=== PATIENT | male | born 1990 | race Caucasian/White ===

== ENCOUNTER 2024-11-07 01:27 | Emergency (ER) | payer MEDICAID, SELFPAY ==
[2024-11-07 01:28] VITALS: BMI 29.0
[2024-11-07 01:54] VITALS: BP 154/93; PULSE 100; RESP 18; TEMP 36.7; O2SAT 95
--- NOTE | 2024-11-07 02:05 | EDNOTE_ITS ---
<Statement entered by Yuni Lowry MD - 11/17/24 11:50> As co-signing physician, I was present and available for consult prn. I concur with the plan and care as documented by the midlevel provider. ED SOB =RME/HPI General Chief Complaint: Shortness of Breath/Dyspnea Stated Complaint: DIFF BREATHING Time Seen by Provider: 11/07/24 01:57 Source: patient Arrival date/time: 11/07/24 01:27 34-year-old male presents emergency department requesting prescription for inhaler. Patient Nuys any fever, cough, shortness of breath, or any other associated symptom. Patient reports just wants inhaler and wants to go home. Mode of arrival: ambulatory Limitations: no limitations Related Data Previous Rx's ?Medication ?Instructions ?Recorded albuterol sulfate 90 mcg/actuation 2 puff inhalation QID PRN 01/17/19 aerosol inhaler (ProAir HFA) shortness of breath or wheezing #8.5 grams tramadol 37.5 mg-acetaminophen 325 1 tab PO TID PRN pain #15 tabs 11/16/22 mg tablet (Ultracet) albuterol sulfate 90 mcg/actuation 2 puff inhalation Q6H PRN 11/07/24 aerosol inhaler (Ventolin HFA) shortness of breath or wheezing #6.7 grams Allergies Allergy/AdvReac Type Severity Reaction Status Date / Time No Known Allergies Allergy Verified 11/07/24 01:29 Review of Systems Review of Systems Systems Reviewed: All systems reviewed, normal except as documented Constitutional Constitutional: Reports system reviewed and no additional complaints, except as documented, Denies body ache(s), Denies chills and Denies fever(s) Eyes Eyes: Reports system reviewed and no additional complaints, except as documented and Denies change in vision ENT Ears, Nose, Mouth, and Throat: Reports system reviewed and no additional complaints, except as documented, Denies disequilibrium, Denies dizziness, Denies sore throat and Denies vertigo Cardiovascular Cardiovascular: Reports system reviewed and no additional complaints, except as documented, Denies chest pain and Denies dyspnea Respiratory Respiratory: Reports system reviewed and no additional complaints, except as documented, Denies chest congestion, Denies cough and Denies dyspnea Gastrointestinal Gastrointestinal: Reports system reviewed and no additional complaints, except as documented, Denies abdominal pain, Denies nausea and Denies vomiting Musculoskeletal Musculoskeletal: Reports system reviewed and no additional complaints, except as documented, Denies abnormal gait and Denies arthralgias Integumentary/Breasts Skin/Breast: Reports system reviewed and no additional complaints, except as documented, Denies erythema, Denies rash and Denies wounds Neurologic Neurologic: Reports system reviewed and no additional complaints, except as documented, Denies abnormal gait, Denies disequilibrium, Denies dizziness and Denies vertigo Past Medical History Past Medical History CARDIAC: Negative Congestive Heart Failure (UNKNOWN) RESPIRATORY: Negative Chronic Obstructive Pulmonary Disease (COPD) (UNKNOWN) GENITOURINARY: Negative Renal Disease (UNKNOWN) ENDOCRINE: Negative Diabetes Mellitus Type 1 (UNKNOWN) or Diabetes Mellitus Type 2 (UNKNOWN) Social History SMOKING STATUS: Current every day smoker SUBSTANCE USE: does not use ED Exam General Limitations: Present no limitations General appearance: Present alert and in no apparent distress Head Head exam: Present atraumatic Eye Eye exam: Present normal appearance, PERRL and EOMI ENT ENT exam: Present normal exam, normal oropharynx and mucous membranes moist Neck Neck exam: Present normal inspection, full ROM and trachea midline Chest Chest inspection: Present normal inspection and symmetric chest wall rise Respiratory Respiratory exam: Present normal lung sounds bilaterally Cardiovascular Cardiovascular exam: Present regular rate, normal rhythm and normal heart sounds Abdominal Exam Abdominal exam: Present soft and normal bowel sounds Extremities Exam Extremities exam: Present normal inspection and full ROM Back Exam Back exam: Present normal inspection and full ROM Neurological Exam Neurological exam: Present alert, oriented X3 and CN II-XII intact Psychiatric Psychiatric exam: Present normal affect and normal mood Skin Skin exam: Present warm, dry, intact and normal color Course Quality Measures none Orders Category Date Time Status Albuterol/Ipratr Rt Kathryn [Duoneb Rt Kathyrn] Med 11/07/24 02:09 Discontinued 3 ml INH X1 ONE Vital Signs Vital signs: Vital Signs Temperature 98.1 F 11/07/24 01:54 Pulse Rate 100 11/07/24 01:54 Respiratory Rate 18 11/07/24 01:54 Blood Pressure 154/93 H 11/07/24 01:54 Pulse Oximetry (%) 95 11/07/24 01:54 Oxygen Delivery Method Room Air 11/07/24 01:54 95% room air within normal limits Shortness of Breath / Dyspnea MDM Narrative MDM Narrative:: 34-year-old male presents emergency department requesting prescription for inhaler. Patient Nuys any fever, cough, shortness of breath, or any other associated symptom. Patient reports just wants inhaler and wants to go home. Patient refused breathing treatment that was offered. Patient refused offer checks x-ray or further evaluation patient reports just wants inhaler prescription and wants to go home. Instructed patient to follow-up with primary care provider return immediately to emergency department for any worsening symptoms or as needed. Patient data External records reviewed:: [facility] previous records Clinical information provided by:: patient Social determinants that could affect healthcare access:: none Patient has the following chronic illnesses:: Asthma How is presenting disease/condition affected by chronic disease/condition?: exacerbated by Evaluation data The following diagnostics were reviewed and interpreted by me:: other (specify) (Refused) Lab and/or radiology exams considered but not ordered:: Not applicable Interpretation Summary: Not applicable Medications / Prescriptions Medications or Prescriptions considered but not ordered:: Ordered Medication administrations:: Medication Administration History Discontinued Medications Albuterol/Ipratropium (Albuterol/Ipratropium (Duoneb) Rt Kathryn 3 Ml Nebu) 3 ml INH X1 ONE Stop: 11/07/24 02:10 Last Admin: 11/07/24 02:30 Dose: Not Given Documented By: [facility] Non-Admin Reason: Patient Refused Refused Consultations Consultation(s) initiated? (list below): No Diagnosis Shortness of Breath Differential Diagnosis: community acquired pneumonia, asthma with exacerbation and pulmonary embolism Most likely diagnosis given after review of the tests above:: Asthma Admission Indicated Admission indicated?: not indicated Admission Request Was there a request for admission?: No Disposition Plan Disposition Plan: Discharge Discharge Attestation Discharge Attestation: The patient and all family members were given an opportunity to ask questions and understood the discharge instructions. Discharge instructions specifically effects, indications for sooner follow up or return to the emergency department, and the expected course of current diagnosis. Patient condition: Stable Discharge Plan Plan Patient Disposition: HOME (Self Care) Disposition Comment: Stable Prescriptions/Referrals Prescriptions/Med Rec: New albuterol sulfate [Ventolin HFA] 90 mcg/actuation HFA aerosol inhaler 2 puff inhalation Q6H PRN (Reason: shortness of breath or wheezing) Qty: 6.7 0RF No Action albuterol sulfate [ProAir HFA] 90 mcg/actuation HFA aerosol inhaler 2 puff INH QID PRN (Reason: shortness of breath or wheezing) Qty: 8.5 0RF tramadol-acetaminophen [Ultracet] 37.5-325 mg tablet 1 tab PO TID PRN (Reason: pain) Qty: 15 0RF Problem List Clinical Impression: Asthma Patient/Caregiver Discharge Instructions Education Materials: Asthma Additional Instructions: Use inhaler as needed. Follow-up with primary care provider in 24 to 48 hours. Return immediately to emergency department for any worsening shortness of breath or worsening symptoms. Print Language: Telugu Stand Alone Forms: Ara Award Info., Patient Portal Info Letter PA/AIR POLLUTION INSPECTOR Supervising Physician PA/AIR POLLUTION INSPECTOR Supervising Physician: Dr. Lowry
== END 2024-11-07 02:30 | disposition home or self-care (01) ==
LOC: SERX 02:30
PROVIDERS: Emergency Provider Emergency Medicine
DX: J45.909 Unspecified asthma, uncomplicated (principal); F17.210 Nicotine dependence, cigarettes, uncomplicated
CPT/HCPCS: 99281